=== PATIENT | male | born 1990 | race American Indian/Alaskan Native ===

== ENCOUNTER 2017-09-04 11:59 | Emergency (ER) | payer MEDICAID ==
[2017-09-04 12:41] VITALS: BP 121/78
--- NOTE | 2017-09-04 14:53 | Emergency Department Report ---
ED ENT HPI - General Chief complaint: Earache Stated complaint: EAR HURT Time Seen by Provider: 09/04/17 14:22 Source: patient Mode of arrival: Ambulatory Limitations: No Limitations - History of Present Illness Initial comments: This is a 26-year-old male nontoxic, well nourished in appearance, no acute signs of distress presents to the ED with c/o of left earache x1 day. Patient stated that he was walking and a tree branch hit his ear and the patient feels like it went inside. Patient stated has slight decrease in hearing but denies any loss of hearing. Patient denies any mastoid tenderness, fever, chills, nausea, vomiting, headache or stiff neck. Patient stated he see a minimal amount of fluid after incident. Patient denies any allergies or significant past medical history. MD complaint: ear pain -: Last night Location: L ear Severity: mild Severity scale (0 -10): 8 Quality: aching Consistency: constant Improves with: none Worsens with: none Associated Symptoms: denies: fever, cough, gum swelling, toothache, pain with swallowing, sore throat, tinnitus, hearing loss, discharge from ear, rhinorrhea - Related Data Previous Rx's Medication Instructions Recorded Last Taken Type Ketorolac [Toradol] 10 mg PO Q6H PRN #20 tablet 12/24/15 Unknown Rx Ofloxacin [Floxin] 5 drops OT DAILY #1 drops 09/04/17 Unknown Rx Allergies Allergy/AdvReac Type Severity Reaction Status Date / Time No Known Allergies Allergy Verified 12/24/15 20:20 ED Dental HPI - General Chief complaint: Earache Stated complaint: EAR HURT Time Seen by Provider: 09/04/17 14:22 Source: patient Mode of arrival: Ambulatory Limitations: No Limitations - Related Data Previous Rx's Medication Instructions Recorded Last Taken Type Ketorolac [Toradol] 10 mg PO Q6H PRN #20 tablet 12/24/15 Unknown Rx Ofloxacin [Floxin] 5 drops OT DAILY #1 drops 09/04/17 Unknown Rx Allergies Allergy/AdvReac Type Severity Reaction Status Date / Time No Known Allergies Allergy Verified 12/24/15 20:20 ED Review of Systems ROS: Stated complaint: EAR HURT Other details as noted in HPI Constitutional: denies: chills, fever Eyes: denies: eye pain, eye discharge, vision change ENT: ear pain. denies: throat pain Respiratory: denies: cough, shortness of breath, wheezing Cardiovascular: denies: chest pain, palpitations Endocrine: no symptoms reported Gastrointestinal: denies: abdominal pain, nausea, diarrhea Genitourinary: denies: urgency, dysuria Musculoskeletal: denies: back pain, joint swelling, arthralgia Skin: denies: rash, lesions Neurological: denies: headache, weakness, paresthesias Psychiatric: denies: anxiety, depression Hematological/Lymphatic: denies: easy bleeding, easy bruising ED Past Medical Hx - Past Medical History Previous Medical History?: Yes Hx Seizures: Yes - Surgical History Past Surgical History?: No - Social History Smoking Status: Never Smoker - Medications Home Medications: Home Medications Medication Instructions Recorded Confirmed Last Taken Type Ketorolac [Toradol] 10 mg PO Q6H PRN #20 tablet 12/24/15 Unknown Rx Ofloxacin [Floxin] 5 drops OT DAILY #1 drops 09/04/17 Unknown Rx ED Physical Exam - General Limitations: No Limitations General appearance: alert, in no apparent distress - Head Head exam: Present: atraumatic, normocephalic - Eye Eye exam: Present: normal appearance Pupils: Present: normal accommodation - ENT ENT exam: Present: normal orophraynx, mucous membranes moist, normal external ear exam - Expanded ENT Exam Expanded Ear exam: Present: normal external inspection TM/Canal exam: Erythema: Left TM, Perforation: Left TM Mouth exam: Present: normal external inspection, tongue normal. Absent: drooling, trismus, muffled voice, tongue elevation, laceration Teeth exam: Present: normal inspection Throat exam: Positive: normal inspection. Negative: tonsillar erythema, tonsillomegaly, tonsillar exudate, R peritonsillar mass, L peritonsillar mass - Neck Neck exam: Present: normal inspection - Respiratory Respiratory exam: Present: normal lung sounds bilaterally. Absent: respiratory distress - Cardiovascular Cardiovascular Exam: Present: regular rate, normal rhythm. Absent: systolic murmur, diastolic murmur, rubs, gallop - GI/Abdominal GI/Abdominal exam: Present: soft, normal bowel sounds - Rectal Rectal exam: Present: deferred - Extremities Exam Extremities exam: Present: normal inspection - Back Exam Back exam: Present: normal inspection - Neurological Exam Neurological exam: Present: alert, oriented X3 - Psychiatric Psychiatric exam: Present: normal affect, normal mood - Skin Skin exam: Present: warm, dry, intact, normal color. Absent: rash ED Course Vital Signs 09/04/17 12:38 Temperature 98.3 F Pulse Rate 67 Respiratory 18 Rate Blood Pressure 121/78 O2 Sat by Pulse 99 Oximetry - Reevaluation(s) Reevaluation #1: 09/04/17 15:05 Patient is speaking in full sentences with no signs of distress noted. ED Medical Decision Making - Medical Decision Making this is a 26-year-old male that presents with ruptured tympanic membrane. Patient is stable and was examined by me. There is no mastoid tenderness, or tragus pain. There is no canal discharge present. Patient does hear but stated that has decreased hearing. I will treat patient with OFloxin ophthalmic drops and patient was referred to ENT doctor. At time of discharge, the patient does not seem toxic or ill in appearance. No acute signs of distress noted. Patient agrees to discharge treatment plan of care. No further questions noted by the patient. Critical care attestation.: If time is entered above; I have spent that time in minutes in the direct care of this critically ill patient, excluding procedure time. ED Disposition Clinical Impression: Ruptured tympanic membrane Qualifiers: Laterality: left Qualified Code(s): H72.92 - Unspecified perforation of tympanic membrane, left ear Disposition: DC-01 TO HOME OR SELFCARE Is pt being admited?: No Does the pt Need Aspirin: No Condition: Stable Instructions: Ruptured Eardrum (ED), Ofloxacin (Into the ear) Additional Instructions: Follow-up with a ENT doctor in 24 hours or if symptoms worsen and continue return to emergency room as soon as possible. Prescriptions: Ofloxacin [Floxin] 5 drops OT DAILY #1 drops Referrals: PRIMARY CAREMD [Primary Care Provider] - 3-5 Days MELONIE KIRBY MD [Staff Physician] - 3-5 Days [facility] [Provider Group] - 3-[address] [facility] [Outside] - 3-5 Days [facility] [Outside] - 3-5 Days Forms: Work/School Release Form(ED)
== END 2017-09-04 15:17 | disposition home or self-care (01) ==
LOC: ED 11:59
DX: H72.92 Unspecified perforation of tympanic membrane, left ear (principal)
CPT/HCPCS: 99282

== ENCOUNTER 2018-10-27 21:21 | Emergency (ER) | payer MEDICAID ==
[2018-10-27] MEDS ORDERED: KEPPRA 1,000 MG/NS 0.75% 100ML 1,000 MG/100 ML BAG IV ONE (21:52)
--- NOTE | 2018-10-27 21:53 | Emergency Department Report ---
ED General Adult HPI - General Chief complaint: Medical Clearance Stated complaint: SEIZURE Time Seen by Provider: 10/27/18 21:45 Source: patient, EMS (verbal report received from EMS.ems notes not available at time of chart dictation), RN notes reviewed, old records reviewed Mode of arrival: Stretcher Limitations: Other (intoxication) - History of Present Illness Initial comments: This is a 27-year-old gentleman. The patient may have a history of seizures. He is not certain. He does not know what seizure medications he takes, if any. The patient is brought to the hospital by emergency medical services. EMS reports that an anonymous third libertarian called 911 as the patient was found laying down outside. It is not certain how long he was laying down for. The patient denies physical pain. He admits to alcohol consumption. He feels anxious. He denies headache, neck pain, chest pain, abdominal pain, shortness of breath, urinary symptoms. The patient doesn't remember what happened, and therefore cannot describe qualitative nature of his symptoms, exacerbating or relieving factors, or radiation. Currently, he simply feels anxious and generally weak, but does not have physical pain at this time -: unknown Radiation: other Quality: other Consistency: other Improves with: other Worsens with: other - Related Data Previous Rx's Medication Instructions Recorded Last Taken Type Ketorolac [Toradol] 10 mg PO Q6H PRN #20 tablet 12/24/15 Unknown Rx Ofloxacin [Floxin] 5 drops OT DAILY #1 drops 09/04/17 Unknown Rx Ibuprofen [Motrin 800 MG tab] 800 mg PO TID #30 tablet 04/19/18 Unknown Rx cephALEXin [Keflex] 500 mg PO BID #10 capsule 04/19/18 Unknown Rx levETIRAcetam [Keppra TAB] 500 mg PO BID #60 tablet 10/27/18 Unknown Rx Allergies Allergy/AdvReac Type Severity Reaction Status Date / Time No Known Allergies Allergy Verified 04/19/18 12:44 ED Review of Systems ROS: Stated complaint: SEIZURE Other details as noted in HPI Constitutional: malaise, weakness Eyes: denies: eye discharge ENT: denies: epistaxis Respiratory: denies: cough Cardiovascular: denies: chest pain Gastrointestinal: denies: abdominal pain Genitourinary: denies: urgency Musculoskeletal: denies: arthralgia, myalgia Skin: denies: lesions Neurological: weakness. denies: headache, numbness, paresthesias, confusion ED Past Medical Hx - Past Medical History Hx Seizures: Yes - Social History Smoking Status: Never Smoker Substance Use Type: None - Medications Home Medications: Home Medications Medication Instructions Recorded Confirmed Last Taken Type Ketorolac [Toradol] 10 mg PO Q6H PRN #20 tablet 12/24/15 Unknown Rx Ofloxacin [Floxin] 5 drops OT DAILY #1 drops 09/04/17 Unknown Rx Ibuprofen [Motrin 800 MG tab] 800 mg PO TID #30 tablet 04/19/18 Unknown Rx cephALEXin [Keflex] 500 mg PO BID #10 capsule 04/19/18 Unknown Rx levETIRAcetam [Keppra TAB] 500 mg PO BID #60 tablet 10/27/18 Unknown Rx ED Physical Exam - General Limitations: Other (the patient does not remember what happened. The patient appears to be intoxicated.) General appearance: alert, appears intoxicated - Head Head exam: Present: atraumatic, normocephalic - Eye Eye exam: Present: normal appearance, PERRL, EOMI, other (visual acuity intact to finger counting, color perception, reading at a close distance). Absent: nystagmus - ENT ENT exam: Present: normal exam, normal orophraynx, mucous membranes moist, normal external ear exam - Neck Neck exam: Present: normal inspection, full ROM. Absent: tenderness, meningismus - Respiratory Respiratory exam: Present: normal lung sounds bilaterally. Absent: respiratory distress - Cardiovascular Cardiovascular Exam: Present: regular rate, normal rhythm, normal heart sounds. Absent: bradycardia, tachycardia, irregular rhythm, systolic murmur, diastolic murmur, rubs, gallop - GI/Abdominal GI/Abdominal exam: Present: soft. Absent: distended, tenderness, guarding, rebound, rigid, pulsatile mass - Rectal Rectal exam: Present: deferred - Extremities Exam Extremities exam: Present: normal inspection, full ROM, other (2+ pulses noted in the bilateral upper, lower extremities. Compartments soft. No long bony tenderness. The pelvis is stable.). Absent: pedal edema, joint swelling, calf tenderness - Back Exam Back exam: Present: normal inspection, full ROM. Absent: tenderness, CVA tenderness (R), CVA tenderness (L), paraspinal tenderness, vertebral tenderness - Neurological Exam Neurological exam: Present: alert, oriented X3, other (Extraocular movements intact. Tongue midline. No facial droop. Facial sensation intact to light touch in the V1, V2, V3 distribution bilaterally. 5 and 5 strength in 4 extremities.. Sensation is intact to light touch in 4 extremities.). Absent: motor sensory deficit - Psychiatric Psychiatric exam: Present: anxious - Skin Skin exam: Present: warm, dry, intact, normal color. Absent: rash ED Course Vital Signs 10/27/18 10/27/18 10/27/18 21:51 22:50 23:07 Temperature 97.9 F Pulse Rate 79 Respiratory 16 18 Rate Blood Pressure 116/73 O2 Sat by Pulse 99 100 99 Oximetry 10/27/18 10/27/18 23:15 23:31 Temperature Pulse Rate 82 85 Respiratory 16 21 Rate Blood Pressure 116/73 116/73 O2 Sat by Pulse 99 99 Oximetry - Reevaluation(s) Reevaluation #1: 10/27/18 23:02 Differential diagnosis, including but not limited to: Alcohol intoxication, seizure, breakthrough seizure, dehydration, electrolyte derangement, i ntracranial injury, cervical spine injury Assessment and plan: 27-year-old gentleman who is clinically intoxicated, Aura Coma Scale of 15, protecting his airway, noncontrast CT scan of the brain, cervical spine negative for acute medical disease, remainder primary, secondary survey unremarkable for significant disease. Patient loaded empirically with 1 g of Keppra. Blood alcohol level 0.11. We will observe patient in the emergency room for a few hours, pending clinical sobriety. Reevaluation #2: 10/28/18 01:33 Patient continues to rest comfortably, and does not appear to be in any acute distress. His repeat physical examination is unremarkable. Reevaluation #3: 10/28/18 03:00 Slightly unsteady with ambulation. We will continue to observe pending clinical sobriety Reevaluation #4: 10/28/18 04:52 The patient is able to walk with a steady gait. The patient has been observed in the emergency room for 7.5 hours without clinical decompensation. He is clinically sober at this time. He will be discharged at this point in time. Return precautions have been reviewed. ED Medical Decision Making - Lab Data Result diagrams: 10/27/18 21:56 10/27/18 21:56 Lab Results 10/27/18 10/27/18 10/27/18 Range/Units 21:56 21:56 21:56 WBC 5.8 (4.5-11.0) K/mm3 RBC 4.70 (3.65-5.03) M/mm3 Hgb 14.4 (11.8-15.2) gm/dl Hct 41.8 (35.5-45.6) % MCV 89 (84-94) fl MCH 31 (28-32) pg MCHC 34 (32-34) % RDW 13.7 (13.2-15.2) % Plt Count 274 (140-440) K/mm3 Sodium 139 (137-145) mmol/L Potassium 3.7 (3.6-5.0) mmol/L Chloride 104.2 (98-107) mmol/L Carbon Dioxide 24 (22-30) mmol/L Anion Gap 15 mmol/L BUN 10 (9-20) mg/dL Creatinine 0.7 L (0.8-1.5) mg/dL Estimated GFR > 60 ml/min BUN/Creatinine Ratio 14 % Glucose 83 (75-100) mg/dL Calcium 8.9 (8.4-10.2) mg/dL Magnesium 2.10 (1.7-2.3) mg/dL Total Creatine Kinase 272 H (55-170) units/L Salicylates < 0.3 L (2.8-20.0) mg/dL Acetaminophen (10.0-30.0) ug/mL Plasma/Serum Alcohol (0-0.07) % 10/27/18 10/27/18 Range/Units 21:56 21:56 WBC (4.5-11.0) K/mm3 RBC (3.65-5.03) M/mm3 Hgb (11.8-15.2) gm/dl Hct (35.5-45.6) % MCV (84-94) fl MCH (28-32) pg MCHC (32-34) % RDW (13.2-15.2) % Plt Count (140-440) K/mm3 Sodium (137-145) mmol/L Potassium (3.6-5.0) mmol/L Chloride (98-107) mmol/L Carbon Dioxide (22-30) mmol/L Anion Gap mmol/L BUN (9-20) mg/dL Creatinine (0.8-1.5) mg/dL Estimated GFR ml/min BUN/Creatinine Ratio % Glucose (75-100) mg/dL Calcium (8.4-10.2) mg/dL Magnesium (1.7-2.3) mg/dL Total Creatine Kinase (55-170) units/L Salicylates (2.8-20.0) mg/dL Acetaminophen < 5.0 L (10.0-30.0) ug/mL Plasma/Serum Alcohol 0.11 H (0-0.07) % Vital Signs 10/27/18 10/27/18 10/27/18 21:51 22:50 23:07 Temperature 97.9 F Pulse Rate 79 Respiratory 16 18 Rate Blood Pressure 116/73 O2 Sat by Pulse 99 100 99 Oximetry 10/27/18 10/27/18 23:15 23:31 Temperature Pulse Rate 82 85 Respiratory 16 21 Rate Blood Pressure 116/73 116/73 O2 Sat by Pulse 99 99 Oximetry - EKG Data -: EKG Interpreted by Ri EKG shows normal: sinus rhythm - EKG Data When compared to previous EKG there are: previous EKG unavailable 10/27/18 23:03 This is a sinus rhythm, 76 bpm, normal axis, QTC prolonged, high left ventricular voltage, no endorsement of chest pain, this is an abnormal EKG, this EKG is not consistent with ST elevation myocardial infarction. Question early repolarization - Radiology Data Radiology results: report reviewed, image reviewed Noncontrast CT scan of the brain is negative for acute disease. Noncontrast CT scan of the cervical spine is negative for acute disease. Critical care attestation.: If time is entered above; I have spent that time in minutes in the direct care of this critically ill patient, excluding procedure time. ED Disposition Clinical Impression: Alcohol intoxication, History of seizure Disposition: DC-01 TO HOME OR SELFCARE Is pt being admited?: No Does the pt Need Aspirin: No Condition: Good Additional Instructions: Do not drive or operate motor vehicles for the next 6 months. Follow up with a primary care doctor or neurology specialist within the next 7-14 days. Take the seizure medication as directed. Make certain to moderate and limit consumption of alcohol. Return to the emergency room right away with new pain, worsened pain, migration of pain, projectile vomiting, change in mental status, confusion, inability to tolerate liquid feeds, new, worsening or different symptoms. Prescriptions: levETIRAcetam [Keppra TAB] 500 mg PO BID #60 tablet Referrals: LASHANDA JENSEN MD [Referring] - 3-5 Days HERIBERTO CORTEZ MD [Staff Physician] - 3-5 Days JM BERNABE MD [Staff Physician] - 3-5 Days [facility] [Provider Group] - 3-5 Days
[2018-10-27 22:07] LABS: Hematocrit 41.8 % (35.5-45.6); Hemoglobin 14.4 gm/dl (11.8-15.2); Mean Corpuscular HGB Conc 34 % (32-34); Mean Corpuscular Volume 89 fl (84-94); Platelet Count 274 K/mm3 (140-440); Red Cell Distribution Width 13.7 % (13.2-15.2)
[2018-10-27 22:23] LABS: BUN/Creatinine Ratio 14; Blood Urea Nitrogen 10 mg/dL (9-20); Calcium 8.9 mg/dL (8.4-10.2); Hemolysis Index 5
--- NOTE | 2018-10-27 22:52 | Cat Scan Report ---
PROCEDURE: CT HEAD/BRAIN WO CON TECHNIQUE: Computerized tomography of the head was performed without contrast material. CT DOSE LENGTH PRODUCT: mGycm HISTORY: sz etoh found down COMPARISONS: None . FINDINGS: Skull and scalp: Normal . Paranasal sinuses: Mucosal secretions are noted in the left posterior ethmoid air cells . Ventricles and subarachnoid spaces: Normal . Cerebrum: No evidence of hemorrhage, acute infarction or mass . Cerebellum and brainstem: No evidence of hemorrhage, acute infarction or mass . Vasculature: Normal . Other: None . ASPECTS: 10 IMPRESSION: No acute intracranial abnormality Left ethmoid sinusitis. This document is electronically signed by Marshall Anton MD., Oct 27 2018 10:50:37 PM ET
--- NOTE | 2018-10-27 22:55 | Cat Scan Report ---
PROCEDURE: CT CERVICAL SPINE WO CON TECHNIQUE: Computerized tomography of the cervical spine was performed from the skull base to T1 wit hout contrast material. CT DOSE LENGTH PRODUCT: mGycm HISTORY: sz etoh found down COMPARISONS: None . FINDINGS: C1-2: No significant abnormality . C2-3: No significant abnormality . C3-4: No significant abnormality . C4-5: No significant abnormality . C5-6: No significant abnormality . C6-7: No significant abnormality . C7-T1: No significant abnormality . Fractures: None . Other: No additional findings . IMPRESSION: No significant abnormality . This document is electronically signed by Marshall Anton MD., Oct 27 2018 10:53:26 PM ET
[2018-10-27 23:16] LABS: Bilirubin,Urine NEG (Negative); Blood,Urine NEG (Negative); Color,Urine Straw (Yellow); Protein,Urine <15 mg/dL mg/dL (Negative); RBC,Urine < 1.0 /HPF (0.0-6.0); Urobilinogen,Urine < 2.0 mg/dL (<2.0); WBC,Urine < 1.0 /HPF (0.0-6.0)
[2018-10-27 23:26] LABS: Amphetamine Screen,Urine PRESUMPTIVE NEGATIVE; Benzodiazepines Screen,Urine PRESUMPTIVE NEGATIVE; Cannabinoid Screen,Urine PRESUMPTIVE NEGATIVE; Cocaine Screen,Urine PRESUMPTIVE NEGATIVE; Methadone Screen,Urine PRESUMPTIVE NEGATIVE; Opiate Screen,Urine PRESUMPTIVE NEGATIVE
[2018-10-28 05:51] VITALS: BP 107/59
== END 2018-10-28 05:52 | disposition home or self-care (01) ==
LOC: ED 21:21
DX: F10.129 Alcohol abuse with intoxication, unspecified (principal); F41.9 Anxiety disorder, unspecified; G43.909 Migraine, unspecified, not intractable, without status migrainosus
CPT/HCPCS: 36415; 70450; 72125; 80048; 80307; 81001; 82550; 83735; 85027; 93005; 93010; 96374; 99285; G0480; J1953; 80320

== ENCOUNTER 2019-08-07 07:37 | Emergency (ER) | payer MEDICAID ==
--- NOTE | 2019-08-07 09:56 | Emergency Department Report ---
ED ENT HPI - General Chief complaint: Dental/Oral Stated complaint: SWOLLEN JAW Source: patient Mode of arrival: Ambulatory Limitations: No Limitations - History of Present Illness Initial comments: This is a 28-year-old male who presents the emergency department the chief complaint of right lower jaw swelling and pain over the past 3 weeks. Patient reports he was recently incarcerated and was being treated in half-way for dental infection with antibiotics. He states this started to improve however he was released and has not been treated recently. He reports the pain is a 7 out of 10 and aggravated by chewing on the right side. He reports the pain will radiate to his right ear. Describes it as sharp and stabbing. There are no alleviating factors. He reports past medical history of seizures and is currently on Keppra. Denies any known allergies to medications. - Related Data Previous Rx's Medication Instructions Recorded Last Taken Type Ketorolac [Toradol] 10 mg PO Q6H PRN #20 tablet 12/24/15 Unknown Rx Ofloxacin [Floxin] 5 drops OT DAILY #1 drops 09/04/17 Unknown Rx Ibuprofen [Motrin 800 MG tab] 800 mg PO TID #30 tablet 04/19/18 Unknown Rx cephALEXin [Keflex] 500 mg PO BID #10 capsule 04/19/18 Unknown Rx levETIRAcetam [Keppra TAB] 500 mg PO BID #60 tablet 10/27/18 Unknown Rx Allergies Allergy/AdvReac Type Severity Reaction Status Date / Time No Known Allergies Allergy Verified 04/19/18 12:44 ED Dental HPI - General Chief complaint: Dental/Oral Stated complaint: SWOLLEN JAW Source: patient Mode of arrival: Ambulatory Limitations: No Limitations - Related Data Previous Rx's Medication Instructions Recorded Last Taken Type Ketorolac [Toradol] 10 mg PO Q6H PRN #20 tablet 12/24/15 Unknown Rx Ofloxacin [Floxin] 5 drops OT DAILY #1 drops 09/04/17 Unknown Rx Ibuprofen [Motrin 800 MG tab] 800 mg PO TID #30 tablet 04/19/18 Unknown Rx cephALEXin [Keflex] 500 mg PO BID #10 capsule 04/19/18 Unknown Rx levETIRAcetam [Keppra TAB] 500 mg PO BID #60 tablet 10/27/18 Unknown Rx Allergies Allergy/AdvReac Type Severity Reaction Status Date / Time No Known Allergies Allergy Verified 04/19/18 12:44 ED Review of Systems ROS: Stated complaint: SWOLLEN JAW Other details as noted in HPI Comment: All other systems reviewed and negative Constitutional: denies: chills, fever Eyes: denies: eye pain, eye discharge, vision change ENT: as per HPI, dental pain. denies: ear pain, throat pain Respiratory: denies: cough, shortness of breath, wheezing Cardiovascular: denies: chest pain, palpitations Endocrine: no symptoms reported Gastrointestinal: denies: abdominal pain, nausea, diarrhea Genitourinary: denies: urgency, dysuria Musculoskeletal: denies: back pain, joint swelling, arthralgia Skin: denies: rash, lesions Neurological: denies: headache, weakness, paresthesias Psychiatric: denies: anxiety, depression Hematological/Lymphatic: denies: easy bleeding, easy bruising ED Past Medical Hx - Past Medical History Previous Medical History?: Yes Hx Seizures: Yes - Surgical History Past Surgical History?: No - Social History Smoking Status: Never Smoker Substance Use Type: None - Medications Home Medications: Home Medications Medication Instructions Recorded Confirmed Last Taken Type Ketorolac [Toradol] 10 mg PO Q6H PRN #20 tablet 12/24/15 Unknown Rx Ofloxacin [Floxin] 5 drops OT DAILY #1 drops 09/04/17 Unknown Rx Ibuprofen [Motrin 800 MG tab] 800 mg PO TID #30 tablet 04/19/18 Unknown Rx cephALEXin [Keflex] 500 mg PO BID #10 capsule 04/19/18 Unknown Rx levETIRAcetam [Keppra TAB] 500 mg PO BID #60 tablet 10/27/18 Unknown Rx ED Physical Exam - General Limitations: No Limitations General appearance: alert, in no apparent distress - Head Head exam: Present: atraumatic, normocephalic - Eye Eye exam: Present: normal appearance, PERRL, EOMI Pupils: Present: normal accommodation - ENT ENT exam: Present: normal exam, normal orophraynx, mucous membranes moist, other (Mild soft tissue swelling noted to the right lower jaw around the third molars with possible abscess. No crepitus. Patient is able to slightly open jaw but does have some mild trismus. No peritonsillar bulging, retropharyngeal bulging or tongue elevation. The submandibular space is soft. No drooling or dysphonia.) - Neck Neck exam: Present: normal inspection, full ROM. Absent: tenderness, mening ismus - Respiratory Respiratory exam: Present: normal lung sounds bilaterally. Absent: respiratory distress, wheezes, rales, rhonchi, stridor - Cardiovascular Cardiovascular Exam: Present: regular rate, normal rhythm, normal heart sounds. Absent: systolic murmur, diastolic murmur, rubs, gallop - GI/Abdominal GI/Abdominal exam: Present: soft, normal bowel sounds. Absent: distended, tenderness, guarding, rebound, rigid - Rectal Rectal exam: Present: deferred - Extremities Exam Extremities exam: Present: normal inspection, full ROM, normal capillary refill. Absent: tenderness - Back Exam Back exam: Present: normal inspection, full ROM. Absent: tenderness, CVA tenderness (R), CVA tenderness (L) - Neurological Exam Neurological exam: Present: alert, oriented X3, normal gait - Psychiatric Psychiatric exam: Present: normal affect, normal mood - Skin Skin exam: Present: warm, dry, intact, normal color. Absent: rash ED Course Vital Signs 08/07/19 07:52 Temperature 98.6 F Pulse Rate 83 Respiratory 16 Rate Blood Pressure 129/64 [Left] O2 Sat by Pulse 99 Oximetry - Consultations Consultation #1: 08/07/19 13:24 Called [facility] but they are on diversion and only accepting trauma, burn or stroke patients. Consultation #2: 08/07/19 14:24 Called [facility] for Transfer, however they are full and not accepting any transfers at this time. Consultation #3: 08/07/19 15:46 Spoke with OMFS Surgeon Dr. Arzola who recommended transferring the patient to [facility] on [address]. He wanted to the patient to be transferred through the ER but will see patient and likely operate on him. - I & D Right Lower Jaw Type of Procedure: Simple Site: right lower jaw, periapical Blade Size: 18G needle Progress: I used hurricaine sprain to numb the area. I then introduced the 18G needle and aspirated about 2mL of purulent material. Patient tolerated well with no complications >5mL of blood loss ED Medical Decision Making - Lab Data Result diagrams: 08/07/19 10:41 08/07/19 10:41 Lab Results 08/07/19 08/07/19 Range/Units 10:41 10:41 WBC 10.0 (4.5-11.0) K/mm3 RBC 4.54 (3.65-5.03) M/mm3 Hgb 13.6 (11.8-15.2) gm/dl Hct 39.3 (35.5-45.6) % MCV 87 (84-94) fl MCH 30 (28-32) pg MCHC 35 H (32-34) % RDW 13.3 (13.2-15.2) % Plt Count 261 (140-440) K/mm3 Lymph % (Auto) 10.2 L (13.4-35.0) % [place] % (Auto) 10.9 H (0.0-7.3) % Eos % (Auto) 0.9 (0.0-4.3) % Baso % (Auto) 0.6 (0.0-1.8) % Lymph # 1.0 L (1.2-5.4) K/mm3 [place] # 1.1 H (0.0-0.8) K/mm3 Eos # 0.1 (0.0-0.4) K/mm3 Baso # 0.1 (0.0-0.1) K/mm3 Seg Neutrophils % 77.4 H (40.0-70.0) % Seg Neutrophils # 7.7 (1.8-7.7) K/mm3 Sodium 140 (137-145) mmol/L Potassium 4.2 (3.6-5.0) mmol/L Chloride 103.3 (98-107) mmol/L Carbon Dioxide 21 L (22-30) mmol/L Anion Gap 20 mmol/L BUN 9 (9-20) mg/dL Creatinine 0.6 L (0.8-1.5) mg/dL Estimated GFR > 60 ml/min BUN/Creatinine Ratio 15 % Glucose 79 (75-100) mg/dL Calcium 9.2 (8.4-10.2) mg/dL - Radiology Data Radiology results: report reviewed, image reviewed Cat Scan Report Signed Patient: ANDRAE ANDERSON MR#: Charan [id number] : 1990 Acct:[id number] Age/Sex: 28 / M ADM Date: 08/07/19 Loc: ED Attending Dr: Ordering Physician: ANGE RAY Date of Service: 08/07/19 Procedure(s): CT neck w con Accession Number(s): [id number] cc: ANGE RAY CT NECK WITH CONTRAST HISTORY: Right-sided facial swelling and trismus. COMPARISON: None. TECHNIQUE: Routine CT of the neck is performed following intravenous contrast. Note: All CT scans at this location are performed using CT dose reduction employed for ALARA by means of automated exposure control. CONTRAST: 100 mL Omnipaque 300 was injected intravenously without incident. Consent was obtained prior to the administration of contrast. FINDINGS: Skull Base: No significant abnormality. Parotid, Carotid, Retropharyngeal, Prevertebral, Pharyngeal Mucosal, and Paper Tube Grader Spaces: No abnormal mass, enhancing lesion or other significant abnormality. Airway: Patent and without significant abnormality. Lymphatics: An enhancing right submandibular lymph node measures 2.6 x 1.8 cm. No other lymphadenopathy. Vasculature: No significant abnormality. Osseous Structures: Erosion of the lateral wall of the right mandible at the level of the right third molar. Additional findings: A right perimandibular abscess at the lateral wall of the mandible demonstrates peripheral enhancement and measures 3.0 x 1.4 x 3.5 cm. No air is identified within the abscess. The adjacent right facial soft tissues are edematous. IMPRESSION: 1.Abscess of the right lower third molar tooth and a 3.5 cm associated soft tissue abscess. 2.Erosion of the lateral wall of the mandible consistent with osteomyelitis of the right mandible. 3. Right submandibular reactive lymphadenopathy. Signer Name: Hany Li MD Signed: 08/07/2019 1:39 PM Workstation Name: [id number] Transcribed By: REF Dictated By: HANY LI MD Electronically Authenticated By: HANY LI MD Signed Date/Time: 08/07/19 1339 - Medical Decision Making Patient presented with patient presented with swelling to the right third molar basis as well as trismus. Initially attempted to do a needle aspiration however it was unsuccessful. Due to the trismus did order a CT of the neck soft tissues and this confirmed a 3.5 centimeters abscess with associated mandibular osteomyelitis. Lab work was relatively unremarkable. Patient was given IV clindamycin here. Discussed with oral maxillofacial surgeon Dr. Arzola at [facility] who agreed to see the patient in transfer. Patient was accepted to transfer to [facility]. Patient is in stable condition in no acute distress. Patient was made n.p.o. - Differential Diagnosis abscess, dental fracture, cyn angina, osteomyelitis Critical care attestation.: If time is entered above; I have spent that time in minutes in the direct care of this critically ill patient, excluding procedure time. ED Disposition Clinical Impression: Osteomyelitis of mandible, Dental abscess Disposition: DC/TX-70 ANOTHER TYPE HLTHCARE Is pt being admited?: No Does the pt Need Aspirin: No Condition: Stable Instructions: Osteomyelitis (ED) Referrals: PRIMARY CARE, [Primary Care Provider] - 3-5 Days Time of Disposition: 16:09
[2019-08-07] MEDS ORDERED: BENZOCAINE 20% TOP SPRAY 0.5 ML UNIT DOSE MM NR (10:00)
[2019-08-07 11:17] LABS: BUN/Creatinine Ratio 15; Blood Urea Nitrogen 9 mg/dL (9-20); Calcium 9.2 mg/dL (8.4-10.2); Hemolysis Index 17
[2019-08-07 11:20] LABS: Basophils # (Auto) 0.1 K/mm3 (0.0-0.1); Basophils % (Auto) 0.6 % (0.0-1.8); Eosinophils # (Auto) 0.1 K/mm3 (0.0-0.4); Eosinophils % (Auto) 0.9 % (0.0-4.3); Hematocrit 39.3 % (35.5-45.6); Hemoglobin 13.6 gm/dl (11.8-15.2); Lymphocytes % (Auto) 10.2 % (13.4-35.0); Mean Corpuscular HGB Conc 35 % (32-34); Mean Corpuscular Volume 87 fl (84-94); Monocytes # (Auto) 1.1 K/mm3 (0.0-0.8); Monocytes % (Auto) 10.9 % (0.0-7.3); Platelet Count 261 K/mm3 (140-440); Red Blood Count 4.54 M/mm3 (3.65-5.03); Red Cell Distribution Width 13.3 % (13.2-15.2)
--- NOTE | 2019-08-07 13:44 | Cat Scan Report ---
CT NECK WITH CONTRAST HISTORY: Right-sided facial swelling and trismus. COMPARISON: None. TECHNIQUE: Routine CT of the neck is performed following intravenous contrast. Note: All CT scans at this location are performed using CT dose reduction employed for ALARA by means of automated exposure control. CONTRAST: 100 mL Omnipaque 300 was injected intravenously without incident. Consent was obtained prio r to the administration of contrast. FINDINGS: Skull Base: No significant abnormality. Parotid, Carotid, Retropharyngeal, Prevertebral, Pharyngeal Mucosal, and House Furnishings Supervisor Spaces: No abnorm al mass, enhancing lesion or other significant abnormality. Airway: Patent and without significant abnormality. Lymphatics: An enhancing right submandibular lymph node measures 2.6 x 1.8 cm. No other lymphadenopat hy. Vasculature: No significant abnormality. Osseous Structures: Erosion of the lateral wall of the right mandible at the level of the right third molar. Additional findings: A right perimandibular abscess at the lateral wall of the mandible demonstrates peripheral enhancement and measures 3.0 x 1.4 x 3.5 cm. No air is identified within the abscess. The adjacent right facial soft tissues are edematous. IMPRESSION: 1.Abscess of the right lower third molar tooth and a 3.5 cm associated soft tissue abscess. 2.Erosion of the lateral wall of the mandible consistent with osteomyelitis of the right mandible. 3. Right submandibular reactive lymphadenopathy. Signer Name: Jayson Romero MD Signed: 08/07/2019 1:39 PM Workstation Name: [id number]
[2019-08-07 16:44] VITALS: BP 132/73
== END 2019-08-07 17:58 | disposition other institution (70) ==
LOC: ED 07:37
DX: M27.2 Inflammatory conditions of jaws (principal); K04.7 Periapical abscess without sinus
CPT/HCPCS: 36415; 41800; 70491; 80048; 85025; 96365; 99285; Q9967

== ENCOUNTER 2019-09-02 11:08 | Emergency (ER) | payer MEDICAID ==
[2019-09-02 11:19] VITALS: BP 133/81
--- NOTE | 2019-09-02 11:27 | Emergency Department Report ---
Blank Doc - Documentation Documentation: 28-year-old male that presents with right knee pain s/p fall. Denies any other injuries or trauma. This initial assessment/diagnostic orders/clinical plan/treatment(s) is/are subject to change based on patient's health status, clinical progression and re- assessment by fellow clinical providers in the ED. Further treatment and workup at subsequent clinical providers discretion. Patient/guardians urged not to elope from the ED as their condition may be serious if not clinically assessed and managed. Initial orders include: 1- Patient sent to [facility] for further evaluation and treatment 2- xrays
--- NOTE | 2019-09-02 12:15 | XRay Report ---
RIGHT KNEE 3 VIEWS INDICATION: knee pain. COMPARISON: No relevant prior imaging study available. FINDINGS: No displaced fracture or dislocation is seen. However, there appears to be a small joint effusion. IMPRESSION: 1. Small joint effusion. No acute fracture is seen. Signer Name: Mohit Russell MD Signed: 09/02/2019 12:11 PM Workstation Name: [id number]
--- NOTE | 2019-09-02 15:07 | Emergency Department Report ---
ED Lower Extremity HPI - General Chief Complaint: Extremity Injury, Lower Stated Complaint: RT LEG CANT WALK/FELL OF LADDER Time Seen by Provider: 09/02/19 11:25 Source: patient Mode of arrival: Ambulatory Limitations: No Limitations - History of Present Illness Initial Comments: This is a 28-year-old -[place] male who presents to the emergency room with right knee and tibia-fibula pain from a fall. Past medical history of seizures. Patient states he fell from a ladder 2 days ago landing on his right side. Patient states the ladder was 10 to 12 feet and he was midway up the ladder. Reports no medial swelling of right knee and worsening pain with movement. Denies numbness or tingling, redness, or weakness. MD Complaint: knee injury (right) Onset/Timin -: days(s) Injury: Leg: Right, Knee: Right Type of Injury: unknown Place: street/outdoors Severity: severe Severity scale (0 -10): 10 Worsens With: weight bearing, movement Context: fall Associated Symptoms: swelling, able to partially bear weight, ambulatory - Related Data Previous Rx's Medication Instructions Recorded Last Taken Type Ketorolac [Toradol] 10 mg PO Q6H PRN #20 tablet 12/24/15 Unknown Rx Ofloxacin [Floxin] 5 drops OT DAILY #1 drops 09/04/17 Unknown Rx Ibuprofen [Motrin 800 MG tab] 800 mg PO TID #30 tablet 04/19/18 Unknown Rx cephALEXin [Keflex] 500 mg PO BID #10 capsule 04/19/18 Unknown Rx levETIRAcetam [Keppra TAB] 500 mg PO BID #60 tablet 10/27/18 Unknown Rx Naproxen [Naprosyn] 500 mg PO BID PRN #20 tablet 09/02/19 Unknown Rx traMADoL [Ultram 50 MG tab] 50 mg PO Q6HR PRN #12 tablet 09/02/19 Unknown Rx Allergies Allergy/AdvReac Type Severity Reaction Status Date / Time No Known Allergies Allergy Verified 04/19/18 12:44 ED Review of Systems ROS: Stated complaint: RT LEG CANT WALK/FELL OF LADDER Other details as noted in HPI Constitutional: denies: chills, fever Respiratory: denies: cough, shortness of breath, wheezing Cardiovascular: denies: chest pain, palpitations Gastrointestinal: denies: abdominal pain, nausea, diarrhea Musculoskeletal: joint swelling (right knee), arthralgia (Right knee pain). denies: back pain Skin: denies: rash, lesions Neurological: denies: headache, weakness, paresthesias Psychiatric: denies: anxiety, depression ED Past Medical Hx - Past Medical History Previous Medical History?: Yes Hx Seizures: Yes - Surgical History Past Surgical History?: No - Social History Smoking Status: Never Smoker Substance Use Type: Alcohol - Medications Home Medications: Home Medications Medication Instructions Recorded Confirmed Last Taken Type Ketorolac [Toradol] 10 mg PO Q6H PRN #20 tablet 12/24/15 Unknown Rx Ofloxacin [Floxin] 5 drops OT DAILY #1 drops 09/04/17 Unknown Rx Ibuprofen [Motrin 800 MG tab] 800 mg PO TID #30 tablet 04/19/18 Unknown Rx cephALEXin [Keflex] 500 mg PO BID #10 capsule 04/19/18 Unknown Rx levETIRAcetam [Keppra TAB] 500 mg PO BID #60 tablet 10/27/18 Unknown Rx Naproxen [Naprosyn] 500 mg PO BID PRN #20 tablet 09/02/19 Unknown Rx traMADoL [Ultram 50 MG tab] 50 mg PO Q6HR PRN #12 tablet 09/02/19 Unknown Rx ED Physical Exam - General Limitations: No Limitations General appearance: alert, in no apparent distress - Respiratory Respiratory exam: Present: normal lung sounds bilaterally. Absent: respiratory distress - Cardiovascular Cardiovascular Exam: Present: regular rate, normal rhythm. Absent: systolic murmur, diastolic murmur, rubs, gallop - GI/Abdominal GI/Abdominal exam: Present: soft, normal bowel sounds - Extremities Exam Extremities exam: Present: normal inspection - Expanded Lower Extremity Exam Right Hip exam: Present: normal inspection, full ROM Upper Leg exam: Present: normal inspection, full ROM Knee exam: Present: tenderness (Medial patella), swelling, pain w/ pronation/supination, full knee extension. Absent: abrasion, laceration, ecchymosis, deformity, crepidus, dislocation, erythema, effusion, posterior draw sign, pain/laxity with valgus, pain/laxity with varus Lower Leg exam: Present: normal inspection, full ROM Ankle exam: Present: normal inspection, full ROM Foot/Toe exam: Present: normal inspection, full ROM Neuro vascular tendon exam: Present: no vascular compromise Gait: Positive: observed and limited by pain - Neurological Exam Neurological exam: Present: alert, oriented X3 - Psychiatric Psychiatric exam: Present: normal affect, normal mood - Skin Skin exam: Present: warm, dry, intact, normal color. Absent: rash ED Course Vital Signs 09/02/19 11:17 Temperature 98 F Pulse Rate 85 Respiratory 18 Rate Blood Pressure 133/81 O2 Sat by Pulse 100 Oximetry ED Lower Extremity MDM - Radiology Data Radiology results: report reviewed RIGHT KNEE 3 VIEWS INDICATION: knee pain. COMPARISON: No relevant prior imaging study available. FINDINGS: No displaced fracture or dislocation is seen. However, there appears to be a small joint effusion. IMPRESSION: 1. Small joint effusion. No acute fracture is seen. - Medical Decision Making 28-year-old male complaining of right leg pain for 2 days. Patient is nontoxic appearing and stable. Vitals are normal. Obtained x-ray of her right knee with findings of Small joint effusion. No acute fracture is seen. Patient ambulating with crutches without distress. Mild tenderness medially, full knee extension. A knee immobilizer was applied to right knee. Patient instructed to continue using crutches. Rice therapy instructions given. He was given strict return precautions. Discharged with prompt follow-up with primary care physician. Critical care attestation.: If time is entered above; I have spent that time in minutes in the direct care of this critically ill patient, excluding procedure time. ED Disposition Clinical Impression: Knee effusion, right Right knee pain Qualifiers: Chronicity: acute Qualified Code(s): M25.561 - Pain in right knee Fall Qualifiers: Encounter type: initial encounter Qualified Code(s): W19.XXXA - Unspecified fall, initial encounter Disposition: TO HOME OR SELFCARE Is pt being admited?: No Condition: Stable Instructions: Knee Effusion (ED), Arthralgia (ED) Additional Instructions: Rest Use ice or heat on affected area for 20 minutes and off for 2 hours. Take pain medication as needed for pain. Follow up with Primary Care Provider in 2-3 days. Prescriptions: Naproxen [Naprosyn] 500 mg PO BID PRN #20 tablet PRN Reason: Pain, Moderate (4-6) traMADoL [Ultram 50 MG tab] 50 mg PO Q6HR PRN #12 tablet PRN Reason: Pain Referrals: [facility] [Outside] - 3-5 Days [facility] [Outside] - 3-5 Days [facility] [Outside] - 3-5 Days Forms: Work/School Release Form(ED) Time of Disposition: 15:06
== END 2019-09-02 15:13 | disposition home or self-care (01) ==
LOC: ED 11:08
DX: M25.461 Effusion, right knee (principal); Z86.69 Personal history of other diseases of the nervous system and sense organs; Z79.1 Long term (current) use of non-steroidal anti-inflammatories (NSAID); Z79.899 Other long term (current) drug therapy; W11.XXXA Fall on and from ladder, initial encounter; Y93.89 Activity, other specified; Y92.89 Other specified places as the place of occurrence of the external cause; Y99.8 Other external cause status

== ENCOUNTER 2021-10-17 14:08 | Emergency (ER) | payer MEDICAID ==
[2021-10-17 17:18] VITALS: BP 132/65
--- NOTE | 2021-10-17 17:28 | Emergency Department Report ---
ED General Adult HPI - General Chief complaint: Earache Stated complaint: LEFT EAR PAIN Source: patient Mode of arrival: Ambulatory Limitations: No Limitations - History of Present Illness Initial comments: Patient is a 30-year-old -Niue[place] male with a history of seizures who presents to the ED with complaint of acute onset persistent left ear pain for the last 3 days after he tried to clean his ear out with a Q-tip and states that he may have injured his left ear as he has been having intermittent bleeding in the left ear with mild worsening pain. Patient denies dizziness, syncope, hearing loss, chest pain or shortness of breath, nausea and vomiting, nasal and sinus congestion, sore throat, neck pain, headache or change in vision. MD Complaint: left ear pain -: Sudden, days(s) (3) Location: face (left ear) Radiation: non-radiation Severity scale (0 -10): 4 Quality: aching, dull Consistency: constant Improves with: none Worsens with: none Associated Symptoms: denies other symptoms. denies: confusion, chest pain, cough, diaphoresis, fever/chills, malaise, nausea/vomiting, rash, seizure, shortness of breath, syncope, weakness Treatments Prior to Arrival: none - Related Data Previous Rx's Medication Instructions Recorded Last Taken Type Ketorolac [Toradol] 10 mg PO Q6H PRN #20 tablet 12/24/15 Unknown Rx Ofloxacin [Floxin] 5 drops OT DAILY #1 drops 09/04/17 Unknown Rx cephALEXin [Keflex] 500 mg PO BID #10 capsule 04/19/18 Unknown Rx levETIRAcetam [Keppra TAB] 500 mg PO BID #60 tablet 10/27/18 Unknown Rx Naproxen [Naprosyn] 500 mg PO BID PRN #20 tablet 09/02/19 Unknown Rx traMADoL [Ultram 50 MG tab] 50 mg PO Q6HR PRN #12 tablet 09/02/19 Unknown Rx Amoxicillin/Potassium Clav 1 each PO Q12H #20 tab 10/17/21 Unknown Rx [Augmentin 875-125 Tablet] Carbamide Peroxide 6.5% [Ear Wax 5 drops OT Q8H #15 ml 10/17/21 Unknown Rx Drops] Ibuprofen [Motrin 800 MG tab] 800 mg PO TID #30 tablet 10/17/21 Unknown Rx Allergies Allergy/AdvReac Type Severity Reaction Status Date / Time No Known Allergies Allergy Verified 04/19/18 12:44 ED Review of Systems ROS: Stated complaint: LEFT EAR PAIN Other details as noted in HPI Constitutional: denies: chills, fever Eyes: denies: eye pain, eye discharge, vision change ENT: ear pain (left ear pain). denies: throat pain Respiratory: denies: cough, shortness of breath, wheezing Cardiovascular: denies: chest pain, palpitations Endocrine: no symptoms reported Gastrointestinal: denies: abdominal pain, nausea, diarrhea Genitourinary: denies: urgency, dysuria Musculoskeletal: denies: back pain, joint swelling, arthralgia Skin: denies: rash, lesions Neurological: denies: headache, weakness, paresthesias Psychiatric: denies: anxiety, depression Hematological/Lymphatic: denies: easy bleeding, easy bruising ED Past Medical Hx - Past Medical History Hx Seizures: Yes - Social History Smoking Status: Never Smoker Substance Use Type: Alcohol - Medications Home Medications: Home Medications Medication Instructions Recorded Confirmed Last Taken Type Ketorolac [Toradol] 10 mg PO Q6H PRN #20 tablet 12/24/15 Unknown Rx Ofloxacin [Floxin] 5 drops OT DAILY #1 drops 09/04/17 Unknown Rx cephALEXin [Keflex] 500 mg PO BID #10 capsule 04/19/18 Unknown Rx levETIRAcetam [Keppra TAB] 500 mg PO BID #60 tablet 10/27/18 Unknown Rx Naproxen [Naprosyn] 500 mg PO BID PRN #20 tablet 09/02/19 Unknown Rx traMADoL [Ultram 50 MG tab] 50 mg PO Q6HR PRN #12 tablet 09/02/19 Unknown Rx Amoxicillin/Potassium Clav 1 each PO Q12H #20 tab 10/17/21 Unknown Rx [Augmentin 875-125 Tablet] Carbamide Peroxide 6.5% [Ear Wax 5 drops OT Q8H #15 ml 10/17/21 Unknown Rx Drops] Ibuprofen [Motrin 800 MG tab] 800 mg PO TID #30 tablet 10/17/21 Unknown Rx ED Physical Exam - General Limitations: No Limitations General appearance: alert, in no apparent distress - Head Head exam: Present: atraumatic, normocephalic, normal inspection - Eye Eye exam: Present: normal appearance, PERRL, EOMI Pupils: Present: normal accommodation - ENT ENT exam: Present: normal orophraynx, mucous membranes moist, other (Mildly erythematous buldging left tympanic membrane with cerumen impaction) - Neck Neck exam: Present: normal inspection, full ROM. Absent: tenderness, meningismus, lymphadenopathy, thyromegaly - Respiratory Respiratory exam: Present: normal lung sounds bilaterally. Absent: respiratory distress, wheezes, chest wall tenderness, accessory muscle use, decreased breath sounds, prolonged expiratory - Cardiovascular Cardiovascular Exam: Present: regular rate, normal rhythm, normal heart sounds. Absent: systolic murmur, diastolic murmur, rubs, gallop - GI/Abdominal GI/Abdominal exam: Present: soft, normal bowel sounds. Absent: tenderness, guarding, rebound, hyperactive bowel sounds, hypoactive bowel sounds, organomegaly, mass - Extremities Exam Extremities exam: Present: normal inspection, full ROM, normal capillary refill. Absent: tenderness - Back Exam Back exam: Present: normal inspection, full ROM. Absent: tenderness, CVA tenderness (R), CVA tenderness (L), muscle spasm, paraspinal tenderness, vertebral tenderness - Neurological Exam Neurological exam: Present: alert, oriented X3, CN II-XII intact, normal gait, reflexes normal - Psychiatric Psychiatric exam: Present: normal affect, normal mood - Skin Skin exam: Present: warm, dry, intact, normal color. Absent: rash ED Course Vital Signs 10/17/21 17:16 Temperature 98 F Pulse Rate 62 Respiratory 16 Rate Blood Pressure 132/65 [Right] ED Medical Decision Making - Medical Decision Making This is a 30-year-old -[place]ue[place] male with a history of seizures who presents to the ED with complaint of acute onset persistent left ear pain for the last 3 days after he tried to clean his ear out with a Q-tip and states that he may have injured his left ear as he has been having intermittent bleeding in the left ear with mild worsening pain. In the ED, patient is alert and oriented x3 and is not in any distress. Patient was discharged home on medications and advised to follow-up with his primary care physician in 7 to 10 days for reevaluation or return to the ED immediately if symptoms get worse. - Differential Diagnosis Otitis media; otitis externa; cerumen impaction Critical care attestation.: If time is entered above; I have spent that time in minutes in the direct care of this critically ill patient, excluding procedure time. ED Disposition Clinical Impression: Acute otitis media with effusion, Impacted cerumen of left ear Disposition: HOME / SELF CARE / HOMELESS Is pt being admited?: No Does the pt Need Aspirin: No Condition: Stable Instructions: Earwax Buildup, Adult, Ear Drops, Adult, [id number], Otitis Media, Adult, [id number] Additional Instructions: Take medication by mouth, apply the medication as needed on the affected ear. Follow-up with your primary care physician in 7 to 10 days for reevaluation. Return to the ED immediately if symptoms get worse. Prescriptions: Amoxicillin/Potassium Clav [Augmentin 875-125 Tablet] 1 each PO Q12H #20 tab Carbamide Peroxide 6.5% [Ear Wax Drops] 5 drops OT Q8H #15 ml Ibuprofen [Motrin 800 MG tab] 800 mg PO TID #30 tablet Referrals: [facility] [Provider Group] - 7-10 days Time of Disposition: 17:32 Print Language: TURKMEN
== END 2021-10-17 17:51 | disposition home or self-care (01) ==
LOC: ED 14:08
DX: H65.192 Other acute nonsuppurative otitis media, left ear (principal); H61.22 Impacted cerumen, left ear; Z72.89 Other problems related to lifestyle; Z79.899 Other long term (current) drug therapy
CPT/HCPCS: 99282

== ENCOUNTER 2022-01-08 20:40 | Emergency (ER) | payer MEDICAID ==
[2022-01-08 22:31] VITALS: BP 131/81
--- NOTE | 2022-01-08 22:48 | Emergency Department Report ---
ED General Adult HPI - General Chief complaint: Dental/Oral Stated complaint: MOUTH PAIN Source: patient Mode of arrival: Ambulatory Limitations: No Limitations - History of Present Illness Initial comments: Patient is a 31-year-old -Swiss male with a history of seizures who presents to the ED with concern of acute onset persistent left mandibular premolar molar tooth ache with swollen gums and pain for the last 4 days. Patient states that the pain has worsened in the last 24 hours with swelling of his left mandible. Patient denies dizziness, syncope, fever, chills, nausea and vomiting, sore throat, nasal and sinus congestion, traumatic injury, neck pain, headache, cough, sore throat oral change in vision, chest pain or shortness of breath. MD Complaint: LEFT mandibular gingival swelling and pain; left mandibular premolar and mo -: days(s) (4) Location: mouth Radiation: non-radiation Severity scale (0 -10): 7 Quality: aching, sharp Consistency: constant Improves with: none Worsens with: eating Associated Symptoms: denies other symptoms. denies: confusion, chest pain, cough, diaphoresis, fever/chills, headaches, loss of appetite, malaise, nausea/vomiting, rash, shortness of breath, syncope, weakness, other Treatments Prior to Arrival: none - Related Data Previous Rx's Medication Instructions Recorded Last Taken Type Ofloxacin [Floxin] 5 drops OT DAILY #1 drops 09/04/17 Unknown Rx cephALEXin [Keflex] 500 mg PO BID #10 capsule 04/19/18 Unknown Rx levETIRAcetam [Keppra TAB] 500 mg PO BID #60 tablet 10/27/18 Unknown Rx Naproxen [Naprosyn] 500 mg PO BID PRN #20 tablet 09/02/19 Unknown Rx traMADoL [Ultram 50 MG tab] 50 mg PO Q6HR PRN #12 tablet 09/02/19 Unknown Rx Amoxicillin/Potassium Clav 1 each PO Q12H #20 tab 10/17/21 Unknown Rx [Augmentin 875-125 Tablet] Carbamide Peroxide 6.5% [Ear Wax 5 drops OT Q8H #15 ml 10/17/21 Unknown Rx Drops] Ibuprofen [Motrin 800 MG tab] 800 mg PO TID #30 tablet 10/17/21 Unknown Rx Acetaminophen/Codeine [Tylenol 1 tab PO Q6H PRN #10 tab 01/08/22 Unknown Rx /Codeine # 3 tab] Clindamycin [Clindamycin CAP] 300 mg PO Q8H #30 cap 01/08/22 Unknown Rx Ketorolac [Toradol] 10 mg PO Q8H PRN #20 tablet 01/08/22 Unknown Rx Allergies Allergy/AdvReac Type Severity Reaction Status Date / Time No Known Allergies Allergy Verified 04/19/18 12:44 ED Review of Systems ROS: Stated complaint: MOUTH PAIN Other details as noted in HPI Constitutional: denies: chills, fever Eyes: denies: eye pain, eye discharge, vision change ENT: dental pain (Left mandibular premolar and molar tooth ache and swollen gums), other (Swollen painful left mandibular gingiva). denies: ear pain, throat pain Respiratory: denies: cough, shortness of breath, wheezing Cardiovascular: denies: chest pain, palpitations Endocrine: no symptoms reported Gastrointestinal: denies: abdominal pain, nausea, diarrhea Genitourinary: denies: urgency, dysuria Musculoskeletal: denies: back pain, joint swelling, arthralgia Skin: denies: rash, lesions Neurological: denies: headache, weakness, paresthesias Psychiatric: denies: anxiety, depression Hematological/Lymphatic: denies: easy bleeding, easy bruising ED Past Medical Hx - Past Medical History Hx Seizures: Yes - Social History Smoking Status: Never Smoker Substance Use Type: Alcohol - Medications Home Medications: Home Medications Medication Instructions Recorded Confirmed Last Taken Type Ofloxacin [Floxin] 5 drops OT DAILY #1 drops 09/04/17 Unknown Rx cephALEXin [Keflex] 500 mg PO BID #10 capsule 04/19/18 Unknown Rx levETIRAcetam [Keppra TAB] 500 mg PO BID #60 tablet 10/27/18 Unknown Rx Naproxen [Naprosyn] 500 mg PO BID PRN #20 tablet 09/02/19 Unknown Rx traMADoL [Ultram 50 MG tab] 50 mg PO Q6HR PRN #12 tablet 09/02/19 Unknown Rx Amoxicillin/Potassium Clav 1 each PO Q12H #20 tab 10/17/21 Unknown Rx [Augmentin 875-125 Tablet] Carbamide Peroxide 6.5% [Ear Wax 5 drops OT Q8H #15 ml 10/17/21 Unknown Rx Drops] Ibuprofen [Motrin 800 MG tab] 800 mg PO TID #30 tablet 10/17/21 Unknown Rx Acetaminophen/Codeine [Tylenol 1 tab PO Q6H PRN #10 tab 01/08/22 Unknown Rx /Codeine # 3 tab] Clindamycin [Clindamycin CAP] 300 mg PO Q8H #30 cap 01/08/22 Unknown Rx Ketorolac [Toradol] 10 mg PO Q8H PRN #20 tablet 01/08/22 Unknown Rx ED Physical Exam - General Limitations: No Limitations General appearance: alert, in no apparent distress - Head Head exam: Present: atraumatic, normocephalic, normal inspection - Eye Eye exam: Present: normal appearance, PERRL, EOMI Pupils: Present: normal accommodation - ENT ENT exam: Present: mucous membranes moist, TM's normal bilaterally, normal external ear exam, other (Swollen, tender left mandibular gingiva; tender left mandibular premolar and molar teeth) - Neck Neck exam: Present: normal inspection, full ROM. Absent: tenderness, lymphadenopathy - Respiratory Respiratory exam: Present: normal lung sounds bilaterally. Absent: respiratory distress, wheezes, rales, rhonchi, chest wall tenderness, accessory muscle use, decreased breath sounds, prolonged expiratory - Cardiovascular Cardiovascular Exam: Present: regular rate, normal rhythm, normal heart sounds. Absent: systolic murmur, diastolic murmur, rubs, gallop - GI/Abdominal GI/Abdominal exam: Present: soft, normal bowel sounds. Absent: distended, tenderness, guarding, rebound, hyperactive bowel sounds, hypoactive bowel sounds, organomegaly - Extremities Exam Extremities exam: Present: normal inspection, full ROM, normal capillary refill. Absent: tenderness - Back Exam Back exam: Present: normal inspection, full ROM. Absent: tenderness, CVA tenderness (R), CVA tenderness (L), muscle spasm, paraspinal tenderness, vertebral tenderness - Neurological Exam Neurological exam: Present: alert, oriented X3, CN II-XII intact, normal gait, reflexes normal - Psychiatric Psychiatric exam: Present: normal affect, normal mood - Skin Skin exam: Present: warm, dry, intact, normal color. Absent: rash ED Course Vital Signs 01/08/22 22:25 Temperature 98.7 F Pulse Rate 71 Respiratory 18 Rate Blood Pressure 131/81 [Left] O2 Sat by Pulse 100 Oximetry ED Medical Decision Making - Medical Decision Making This is a 31-year-old -Swiss male with a history of seizures who presents to the ED with concern of acute onset persistent left mandibular premolar molar tooth ache with swollen gums and pain for the last 4 days. Patient states that the pain has worsened in the last 24 hours with swelling of his left mandible. In the ED, patient is alert and oriented x3 and is not in any distress. Patient was treated in the ED for pain and discharged home on pain medications and antibiotics and advised to follow-up with his dentist in 7 to 10 days for reevaluation. Patient is advised to return to the ED immediately if symptoms get worse. - Differential Diagnosis Gingivitis; dental abscess; dental caries Critical care attestation.: If time is entered above; I have spent that time in minutes in the direct care of this critically ill patient, excluding procedure time. ED Disposition Clinical Impression: Acute gingivitis, Dental abscess, Dental caries Disposition: 01 HOME / SELF CARE / HOMELESS Is pt being admited?: No Does the pt Need Aspirin: No Condition: Stable Instructions: Dental Abscess, [id number], Dental Extraction, Care After, Ea sy-to-Read, Trench Mouth Additional Instructions: Take medication with food, drink plenty of fluids, follow-up with your dentist in 7 to 10 days for reevaluation. Return to the ED immediately if symptoms get worse. Prescriptions: Clindamycin [Clindamycin CAP] 300 mg PO Q8H #30 cap Ketorolac [Toradol] 10 mg PO Q8H PRN #20 tablet PRN Reason: Pain , Severe (7-10) Acetaminophen/Codeine [Tylenol /Codeine # 3 tab] 1 tab PO Q6H PRN #10 tab PRN Reason: Pain , Severe (7-10) Referrals: [facility] [Outside] - 7-10 days Time of Disposition: 22:49 Print Language: MOHAWK
[2022-01-08] MEDS ORDERED: ONDANSETRON 4 MG ODT TAB PO ONE (22:52)
[2022-01-08] MEDS ORDERED: IBUPROFEN 600 MG TAB PO ONE (22:52)
[2022-01-08] MEDS ORDERED: HYDROcodone/ACETAMINOPHEN 5-325 MG TAB PO ONE (22:52)
[2022-01-08] MEDS ORDERED: CLINDAMYCIN 300 MG CAP PO ONE (22:52)
== END 2022-01-08 23:06 | disposition home or self-care (01) ==
LOC: ED 20:40
DX: K05.00 Acute gingivitis, plaque induced (principal); K04.7 Periapical abscess without sinus; K02.9 Dental caries, unspecified; F10.20 Alcohol dependence, uncomplicated
CPT/HCPCS: 99282; J3490; Q0162